=== PATIENT | male | born 1975 | race Caucasian/White ===

== ENCOUNTER 2019-04-07 07:42 | Outpatient (REF) | payer BC, SELFPAY ==
[2019-04-07 13:54] LABS: ALT 39 U/L (12-78); AST 22 U/L (15-37); Albumin 4.1 g/dL (3.4-5.0); Alkaline Phosphatase 76 U/L (46-116); Anion Gap 8.4 mmol/L (3-11); BUN 14 mg/dL (7-18); Bilirubin, Total 0.5 mg/dL (0.2-1.0); CO2 29.6 mmol/L (21.0-32.0); CREATININE 0.98 mg/dL (0.70-1.30); Calcium 9.6 mg/dL (8.5-10.1); Chloride 100 mmol/L (98-107); Cholesterol 226 mg/dL (50-200); Glucose 94 mg/dL (70-100); HDL Cholesterol 40 mg/dL (40-60); LDL CHOLESTEROL 125 mg/dL (<100); Potassium 4.9 mmol/L (3.5-5.1); Sodium 138 mmol/L (136-145); Total Protein 7.5 g/dL (6.4-8.2); Triglyceride 412 mg/dL (30-150)
== END 2019-04-07 08:02 ==
LOC: NCHCN 07:42
PROVIDERS: PCP Internal Medicine; Visit Provider Nurse Practitioner Family
DX: Z00.00 Encounter for general adult medical examination without abnormal findings (principal); Z13.220 Encounter for screening for lipoid disorders; Z13.228 Encounter for screening for other metabolic disorders
CPT/HCPCS: 80053; 80061; 83721

== ENCOUNTER 2019-08-07 13:12 | Outpatient (REF) | payer BC, SELFPAY ==
[2019-08-07 14:08] LABS: Cholesterol 215 mg/dL (50-200); HDL Cholesterol 37 mg/dL (40-60); Triglyceride 449 mg/dL (30-150)
[2019-08-07 14:23] LABS: LDL CHOLESTEROL 114 mg/dL (<100)
== END 2019-08-07 13:32 ==
LOC: NCHCN 13:12
PROVIDERS: PCP Internal Medicine; Visit Provider Nurse Practitioner Family
DX: E78.5 Hyperlipidemia, unspecified (principal)
CPT/HCPCS: 80061; 83721

== ENCOUNTER 2020-01-05 12:22 | Outpatient (REF) | payer BC, SELFPAY ==
[2019-12-23 12:52] LABS: Calculated LDL 60 mg/dL; Cholesterol 159 mg/dL (<200); HDL Cholesterol 42 mg/dL (40-60); Triglyceride 287 mg/dL (<150)
== END 2020-01-05 12:42 ==
LOC: NCHCN 12:22
PROVIDERS: PCP Nurse Practitioner Family; Visit Provider Nurse Practitioner Family
DX: E78.5 Hyperlipidemia, unspecified (principal)
CPT/HCPCS: 80061

== ENCOUNTER 2020-08-25 08:35 | Outpatient (REF) | payer OTHER, SELFPAY ==
[2020-08-25 18:57] LABS: Anion Gap 3.9 mmol/L (3-11); BUN 17 mg/dL (7-18); CO2 31.1 mmol/L (21.0-32.0); CREATININE 0.92 mg/dL (0.70-1.30); Chloride 104 mmol/L (98-107); Cholesterol 163 mg/dL (<200); Glucose 90 mg/dL (74-106); HDL Cholesterol 41 mg/dL (40-60); Potassium 4.6 mmol/L (3.5-5.1); Sodium 139 mmol/L (136-145); Triglyceride 497 mg/dL (<150)
[2020-08-25 19:29] LABS: LDL CHOLESTEROL 50 mg/dL (<100)
== END 2020-08-25 08:55 ==
LOC: NCHCN 08:35
PROVIDERS: PCP Nurse Practitioner Family; Visit Provider Nurse Practitioner Family
DX: E78.5 Hyperlipidemia, unspecified (principal)
CPT/HCPCS: 80048; 80061; 83721

== ENCOUNTER 2022-03-22 18:23 | Outpatient (REF) | payer BC, SELFPAY ==
[2022-03-22 18:49] LABS: Anion Gap 9.1 mmol/L (3-11); BUN 18 mg/dL (7-18); CO2 25.9 mmol/L (21.0-32.0); Calculated LDL 55 mg/dL (<100); Chloride 102 mmol/L (98-107); Cholesterol 150 mg/dL (<200); Glucose 93 mg/dL (74-106); HDL Cholesterol 62 mg/dL (40-60); Potassium 3.9 mmol/L (3.5-5.1); Sodium 137 mmol/L (136-145); Triglyceride 165 mg/dL (<150)
== END 2022-03-22 18:24 | disposition home or self-care (01) ==
LOC: NCHCN 18:23
PROVIDERS: PCP Nurse Practitioner Family; Visit Provider Nurse Practitioner Family
DX: E78.5 Hyperlipidemia, unspecified (principal); I10 Essential (primary) hypertension
CPT/HCPCS: 80048; 80061

== ENCOUNTER 2023-04-24 22:24 | Outpatient (REF) | payer BC, SELFPAY ==
[2023-04-24 20:21] LABS: ALT 38 U/L (16-63); AST 36 U/L (15-37); Albumin 4.1 g/dL (3.4-5.0); Alkaline Phosphatase 90 U/L (46-116); Anion Gap 8.5 mmol/L (3-11); BUN 18 mg/dL (7-18); Bilirubin, Total 0.9 mg/dL (0.2-1.0); CO2 26.5 mmol/L (21.0-32.0); Calcium 9.8 mg/dL (8.5-10.1); Calculated LDL 64 mg/dL (<100); Chloride 101 mmol/L (98-107); Cholesterol 139 mg/dL (<200); Estimated GFR 93.42 (mL/min/1.73m2); Glucose 105 mg/dL (74-106); HDL Cholesterol 59 mg/dL (40-60); Potassium 4.5 mmol/L (3.5-5.1); Sodium 136 mmol/L (136-145); Total Protein 8.2 g/dL (6.4-8.2); Triglyceride 81 mg/dL (<150)
== END 2023-04-24 22:25 | disposition home or self-care (01) ==
LOC: NCHCN 22:24
PROVIDERS: PCP Nurse Practitioner Family; Visit Provider Nurse Practitioner Family
DX: I10 Essential (primary) hypertension (principal); E78.5 Hyperlipidemia, unspecified
CPT/HCPCS: 80053; 80061

== ENCOUNTER 2024-06-26 12:43 | Outpatient (REF) | payer BC, SELFPAY ==
[2024-06-26 19:12] LABS: ALT 30 U/L (16-63); AST 19 U/L (15-37); Albumin 4.2 g/dL (3.4-5.0); Alkaline Phosphatase 83 U/L (46-116); Anion Gap 9.3 mmol/L (3-11); BUN 16 mg/dL (7-18); Bilirubin, Total 0.55 mg/dL (0.2-1.0); CO2 27.7 mmol/L (21.0-32.0); Calcium 9.4 mg/dL (8.5-10.1); Chloride 101 mmol/L (98-107); Estimated GFR 92.84 (mL/min/1.73m2); Glucose 100 mg/dL (74-106); Potassium 4.5 mmol/L (3.5-5.1); Sodium 138 mmol/L (136-145); Total Protein 7.6 g/dL (6.4-8.2)
[2024-06-26 19:28] LABS: Calculated LDL 34 mg/dL (<100); Cholesterol 149 mg/dL (<200); HDL Cholesterol 52 mg/dL (40-60); Triglyceride 316 mg/dL (<150)
== END 2024-06-26 12:44 | disposition home or self-care (01) ==
LOC: NCHCN 12:43
PROVIDERS: Visit Provider Nurse Practitioner Family
DX: I10 Essential (primary) hypertension (principal); E78.5 Hyperlipidemia, unspecified
CPT/HCPCS: 80053; 80061

== ENCOUNTER 2024-11-03 11:44 | Outpatient (REF) | payer BC, SELFPAY ==
[2024-11-03 16:28] LABS: Cholesterol 233 mg/dL (<200); HDL Cholesterol 51 mg/dL (40-60); Triglyceride 402 mg/dL (<150)
[2024-11-03 16:39] LABS: LDL CHOLESTEROL 113 mg/dL (<100)
== END 2024-11-03 11:45 | disposition home or self-care (01) ==
LOC: NCHCN 11:44
PROVIDERS: Visit Provider Nurse Practitioner Family
DX: E78.5 Hyperlipidemia, unspecified (principal); I10 Essential (primary) hypertension
CPT/HCPCS: 80061; 83721

== ENCOUNTER 2025-08-26 18:28 | Outpatient (REF) | payer OTHER, SELFPAY ==
[2025-08-26 19:28] LABS: Calculated LDL 83 mg/dL (<100); Cholesterol 162 mg/dL (<200); HDL Cholesterol 57 mg/dL (>or=40); Triglyceride 110 mg/dL (<150)
[2025-08-26 21:58] LABS: ALT 32 U/L (16-63); AST 18 U/L (15-37); Albumin 4.4 g/dL (3.4-5.0); Alkaline Phosphatase 86 U/L (46-116); Anion Gap 11.4 mmol/L (3-11); BUN 11 mg/dL (7-18); Bilirubin, Total 0.7 mg/dL (0.2-1.0); CO2 25.6 mmol/L (21.0-32.0); Calcium 9.3 mg/dL (8.5-10.1); Chloride 100 mmol/L (98-107); Estimated GFR 104.05 (mL/min/1.73m2); Glucose 111 mg/dL (74-106); Potassium 4.2 mmol/L (3.5-5.1); Sodium 137 mmol/L (136-145); Total Protein 7.3 g/dL (6.4-8.2)
== END 2025-08-26 18:29 | disposition home or self-care (01) ==
LOC: NCHCN 18:28
PROVIDERS: Visit Provider Nurse Practitioner Family
DX: E78.5 Hyperlipidemia, unspecified (principal)
CPT/HCPCS: 80053; 80061